=== PATIENT | male | born 1995 | race Caucasian/White ===

== ENCOUNTER 2023-07-14 12:25 | Day surgery (SDC) | payer OTHER ==
[~2023-07-14] VITALS: Ht 180.3 cm; Wt 100.7 kg
[~2023-07-14 12:25] MED LIST: NS 1,000 ML IV ONE; OMEP40CA4 PO
[2023-07-14] MEDS ORDERED: fentaNYL 100 MCG/2 ML INJECTION As Ordered ONE (15:05)
[2023-07-14] MEDS ORDERED: GLYCOPYRROLATE INJ 0.2 MG/ML 2 ML VIAL As Ordered ONE (15:05)
[2023-07-14] MEDS ORDERED: LIDOCAINE 2% 100MG/5ML SDV (FOR ANES.) As Ordered ONE (15:05)
[2023-07-14] MEDS ORDERED: propofoL 200 MG/20 ML VIAL As Ordered ONE (15:05)
[2023-07-14 15:19] VITALS: TEMP 96.7
[2023-07-14 15:30] VITALS: BP 130/76; O2SAT 97
== END 2023-07-14 15:45 | disposition home or self-care (01) ==
LOC: M OPP 12:25
PROVIDERS: ATTEND Internal Medicine Gastroenterology
DX: K21.00 Gastro-esophageal reflux disease with esophagitis, without bleeding (principal); K44.9 Diaphragmatic hernia without obstruction or gangrene; F17.290 Nicotine dependence, other tobacco product, uncomplicated; Z79.83 Long term (current) use of bisphosphonates
CPT/HCPCS: 43239; 88305; J3010